=== PATIENT | female | born 1945 | race Caucasian/White ===

== ENCOUNTER 2018-07-24 15:15 | Emergency (ER) | payer MEDICARE ==
[2018-07-24] MEDS: SOD CHLORIDE 0.9% 1,000 ML IV (16:41)
[2018-07-24] MEDS: morphine 4 MG/ML VIAL IV (16:41)
[2018-07-24] MEDS: ONDANSETRON 4 MG INJ IV (16:41)
[2018-07-24 16:43] LABS: ADD MAN DIFF? NO
[2018-07-24 16:50] LABS: WHITE BLOOD COUNT 8.4 10^3/ul (4.8-10.8)
[2018-07-24 16:50] LABS: BASOPHIL # 0.1 10^3/ul (0.0-0.1); BASOPHILS % 1.2 % (0.0-2.0); EOSINOPHILS # 0.4 10^3/ul (0.0-0.5); EOSINOPHILS % 5.1 % (0.0-7.0); HEMATOCRIT 40.4 % (37.0-47.0); HEMOGLOBIN 13.4 g/dl (12.0-16.0); LYMPHOCYTES # 2.8 10^3/ul (0.8-2.9); LYMPHOCYTES % 33.5 % (15.0-51.0); MEAN CORPUSCULAR HEMOGLOBIN 28.4 pg (29.0-33.0); MEAN CORPUSCULAR HGB CONC 33.2 g/dl (32.0-37.0); MEAN CORPUSCULAR VOLUME 85.6 fl (82.0-101.0); MEAN PLATELET VOLUME 11.1 fl (7.4-10.4); MONOCYTE # 0.6 10^3/ul (0.3-0.9); MONOCYTES % 7.2 % (0.0-11.0); NEUTROPHIL # 4.4 10^3/ul (1.6-7.5); NEUTROPHILS % 52.6 % (39.0-77.0); PLATELET COUNT 264 10^3/UL (140-415); RED BLOOD COUNT 4.72 10^6/ul (4.20-5.40); RED CELL DISTRIBUTION WIDTH 13.5 % (11.5-14.5)
[2018-07-24 16:57] LABS: ADD UMIC YES; UR ASCORBIC ACID NEGATIVE (NEGATIVE); UR BACTERIA FEW /HPF (NONE SEEN); UR BILIRUBIN (Dip) NEGATIVE (NEGATIVE); UR BLOOD (Dip) NEGATIVE (NEGATIVE); UR CLARITY CLEAR (CLEAR); UR COLOR YELLOW (YELLOW); UR GLUCOSE (Dip) NEGATIVE (NEGATIVE); UR KETONES (Dip) NEGATIVE (NEGATIVE); UR LEUKOCYTE ESTERASE (Dip) 1+ Leu/ul (NEGATIVE); UR NITRITE (Dip) NEGATIVE (NEGATIVE); UR RBC 1 /HPF (0-5); UR SPECIFIC GRAVITY (Dip) 1.012 (1.003-1.030); UR TOTAL PROTEIN (Dip) NEGATIVE (NEGATIVE); UR UROBILINOGEN (Dip) NEGATIVE (NEGATIVE); UR WBC 19 /HPF (0-5)
[2018-07-24 17:07] LABS: ALANINE AMINOTRANSFERASE 22 IU/L (13-69); ALBUMIN 4.2 g/dl (3.3-4.9); ALBUMIN/GLOBULIN RATIO 1.16; ALKALINE PHOSPHATASE 44 IU/L (42-121); ANION GAP 14 (8-16); ASPARTATE AMINO TRANSFERASE 25 IU/L (15-46); BILIRUBIN,INDIRECT 0.1 mg/dl (0-1.1); BILIRUBIN,TOTAL 0.1 mg/dl (0.2-1.3); BLOOD UREA NITROGEN 18 mg/dl (7-20); CALCIUM 9.4 mg/dl (8.4-10.2); CARBON DIOXIDE 28 mmol/L (21-31); CHLORIDE 98 mmol/L (97-110); CREATININE 1.13 mg/dl (0.44-1.00); GLUCOSE 113 mg/dl (70-220); LIPASE 75 U/L (23-300); SODIUM 137 mmol/L (135-144); TOTAL PROTEIN 7.8 g/dl (6.1-8.1)
[2018-07-24] MEDS: CEFTRIAXONE 1 GM/50 ML (PMX) 50 ML IVPB (18:02)
[2018-07-24] MEDS: POTASSIUM CHLORIDE (SR) 20 MEQ TAB PO (18:17)
== END 2018-07-24 19:44 | disposition home or self-care (01) ==
LOC: E/R 15:15
DX: E87.6 Hypokalemia (principal); N30.00 Acute cystitis without hematuria; I25.10 Atherosclerotic heart disease of native coronary artery without angina pectoris; I10 Essential (primary) hypertension; Z98.61 Coronary angioplasty status
CPT/HCPCS: 36415; 74176; 80053; 81001; 83690; 85025; 96361; 96374; 96375; 99285-25

== ENCOUNTER 2019-04-15 12:53 | Emergency (ER) | payer MEDICARE, OTHER ==
[2019-04-15] MEDS: ACETAMINOPHEN 500 MG TAB PO (13:27)
== END 2019-04-15 15:08 | disposition home or self-care (01) ==
LOC: E/R 12:53
DX: I10 Essential (primary) hypertension (principal); I25.10 Atherosclerotic heart disease of native coronary artery without angina pectoris; R40.2142 Coma scale, eyes open, spontaneous, at arrival to emergency department; R40.2362 Coma scale, best motor response, obeys commands, at arrival to emergency department; R40.2252 Coma scale, best verbal response, oriented, at arrival to emergency department; Z98.61 Coronary angioplasty status
CPT/HCPCS: 99282

== ENCOUNTER 2019-04-18 16:50 | Inpatient (IN) | payer MEDICARE, OTHER ==
[2019-04-18 17:20] LABS: ADD MAN DIFF? NO
[2019-04-18 17:25] LABS: WHITE BLOOD COUNT 7.9 10^3/ul (4.8-10.8)
[2019-04-18 17:25] LABS: BASOPHIL # 0.1 10^3/ul (0.0-0.1); BASOPHILS % 1.1 % (0.0-2.0); EOSINOPHILS # 0.3 10^3/ul (0.0-0.5); EOSINOPHILS % 4.2 % (0.0-7.0); HEMATOCRIT 42.3 % (37.0-47.0); HEMOGLOBIN 13.7 g/dl (12.0-16.0); LYMPHOCYTES # 3.1 10^3/ul (0.8-2.9); LYMPHOCYTES % 38.6 % (15.0-51.0); MEAN CORPUSCULAR HEMOGLOBIN 28.3 pg (29.0-33.0); MEAN CORPUSCULAR HGB CONC 32.4 g/dl (32.0-37.0); MEAN CORPUSCULAR VOLUME 87.4 fl (82.0-101.0); MEAN PLATELET VOLUME 11.5 fl (7.4-10.4); MONOCYTE # 0.6 10^3/ul (0.3-0.9); MONOCYTES % 7.7 % (0.0-11.0); NEUTROPHIL # 3.8 10^3/ul (1.6-7.5); NEUTROPHILS % 48.3 % (39.0-77.0); PLATELET COUNT 228 10^3/UL (140-415); RED BLOOD COUNT 4.84 10^6/ul (4.20-5.40); RED CELL DISTRIBUTION WIDTH 13.4 % (11.5-14.5)
[2019-04-18 17:43] LABS: ANION GAP 9 (5-13); BLOOD UREA NITROGEN 9 mg/dl (7-20); CARBON DIOXIDE 25 mmol/L (21-31); CHLORIDE 106 mmol/L (97-110); CHOL/HDL RATIO 3.3 RATIO; CHOLESTEROL 195 mg/dl (100-200); CREATININE 0.77 mg/dl (0.44-1.00); GLUCOSE 117 mg/dl (70-220); HDL CHOLESTEROL 58 mg/dl (33-92); LDL CHOLESTEROL,CALCULATED 99 mg/dl; POTASSIUM 4.3 mmol/L (3.5-5.1); SODIUM 140 mmol/L (135-144); TRIGLYCERIDES 189 mg/dl (0-149)
[2019-04-18 17:44] LABS: INR 0.93; PARTIAL THROMBOPLASTIN TIME 28.8 Sec (23.0-35.0); PROTIME 12.6 Sec (11.9-14.9)
[2019-04-18 17:56] LABS: TROPONIN-I < 0.012 ng/ml (0.000-0.120)
[2019-04-18] MEDS: LABETALOL HCL 20MG INJ IV (17:59)
[2019-04-18] MEDS: KETOROLAC 30 MG INJ IV (18:00)
[2019-04-18] MEDS: PROCHLORPERAZINE 10 MG INJ IV (18:00)
[2019-04-18] MEDS ORDERED: NACL 0.9% 3 ML SYG IV (18:30)
[2019-04-18] MEDS ORDERED: hydrALAzine 20 MG INJ IV (18:30)
[2019-04-18] MEDS ORDERED: ONDANSETRON 4 MG INJ IV ×2 (18:30)
[2019-04-18] MEDS ORDERED: HYDROCODONE/APAP (5/325) TAB PO (18:30)
[2019-04-18] MEDS ORDERED: LABETALOL HCL 20MG INJ IV (18:30)
[2019-04-18 18:52] LABS: HEMOGLOBIN A1C 5.6 % (0-5.9)
[2019-04-19] MEDS: clonAZEPAM 0.5 MG TAB PO ×2 (02:35→23:13)
[2019-04-19 05:38] LABS: ADD MAN DIFF? NO
[2019-04-19 05:40] LABS: WHITE BLOOD COUNT 5.2 10^3/ul (4.8-10.8)
[2019-04-19 05:40] LABS: BASOPHIL # 0.1 10^3/ul (0.0-0.1); BASOPHILS % 1.4 % (0.0-2.0); EOSINOPHILS # 0.2 10^3/ul (0.0-0.5); EOSINOPHILS % 4.5 % (0.0-7.0); HEMATOCRIT 38.7 % (37.0-47.0); HEMOGLOBIN 12.4 g/dl (12.0-16.0); LYMPHOCYTES # 1.6 10^3/ul (0.8-2.9); LYMPHOCYTES % 30.7 % (15.0-51.0); MEAN CORPUSCULAR HEMOGLOBIN 28.3 pg (29.0-33.0); MEAN CORPUSCULAR VOLUME 88.4 fl (82.0-101.0); MEAN PLATELET VOLUME 11.8 fl (7.4-10.4); MONOCYTE # 0.4 10^3/ul (0.3-0.9); MONOCYTES % 8.5 % (0.0-11.0); NEUTROPHIL # 2.8 10^3/ul (1.6-7.5); NEUTROPHILS % 54.7 % (39.0-77.0); PLATELET COUNT 188 10^3/UL (140-415); RED BLOOD COUNT 4.38 10^6/ul (4.20-5.40); RED CELL DISTRIBUTION WIDTH 13.2 % (11.5-14.5)
[2019-04-19 05:52] LABS: HEMOGLOBIN A1C 5.6 % (0-5.9)
[2019-04-19 06:13] LABS: ALANINE AMINOTRANSFERASE 19 IU/L (13-69); ALBUMIN 3.5 g/dl (3.3-4.9); ALBUMIN/GLOBULIN RATIO 1.34; ALKALINE PHOSPHATASE 40 IU/L (42-121); ANION GAP 4 (5-13); ASPARTATE AMINO TRANSFERASE 21 IU/L (15-46); BILIRUBIN,INDIRECT 0.4 mg/dl (0-1.1); BILIRUBIN,TOTAL 0.4 mg/dl (0.2-1.3); BLOOD UREA NITROGEN 8 mg/dl (7-20); CALCIUM 8.7 mg/dl (8.4-10.2); CARBON DIOXIDE 30 mmol/L (21-31); CHLORIDE 106 mmol/L (97-110); CHOL/HDL RATIO 3.3 RATIO; CHOLESTEROL 172 mg/dl (100-200); CREATININE 0.72 mg/dl (0.44-1.00); GLUCOSE 101 mg/dl (70-220); HDL CHOLESTEROL 51 mg/dl (33-92); LDL CHOLESTEROL,CALCULATED 98 mg/dl; MAGNESIUM 2.2 mg/dl (1.7-2.5); POTASSIUM 4.3 mmol/L (3.5-5.1); SODIUM 140 mmol/L (135-144); TOTAL PROTEIN 6.1 g/dl (6.1-8.1); TRIGLYCERIDES 117 mg/dl (0-149)
[2019-04-19] MEDS: ACETAMINOPHEN 325 MG TAB PO ×2 (09:03→14:18)
[2019-04-19] MEDS: ASPIRIN (EC) 81 MG TAB PO (09:04)
[2019-04-19] MEDS: AMLODIPINE 5 MG TAB PO ×2 (09:51→21:23)
[2019-04-19] MEDS: BENAZEPRIL 40 MG TAB PO (09:52)
[2019-04-19] MEDS: PANTOPRAZOLE (EC) 40 MG TAB PO (09:52)
[2019-04-19] MEDS: ASPIRIN 81 MG TAB PO (09:52)
[2019-04-19] MEDS: ATENOLOL 50 MG TAB PO (09:53)
[2019-04-19] MEDS: ATORVASTATIN 80 MG TAB PO (21:22)
[2019-04-20 02:07] LABS: TROPONIN-I < 0.012 ng/ml (0.000-0.120)
[2019-04-20 06:07] LABS: ADD MAN DIFF? NO
[2019-04-20 06:08] LABS: BASOPHIL # 0.1 10^3/ul (0.0-0.1); BASOPHILS % 1.5 % (0.0-2.0); EOSINOPHILS # 0.4 10^3/ul (0.0-0.5); EOSINOPHILS % 6.7 % (0.0-7.0); HEMATOCRIT 39.1 % (37.0-47.0); HEMOGLOBIN 12.4 g/dl (12.0-16.0); LYMPHOCYTES # 1.8 10^3/ul (0.8-2.9); LYMPHOCYTES % 30.5 % (15.0-51.0); MEAN CORPUSCULAR HGB CONC 31.7 g/dl (32.0-37.0); MEAN CORPUSCULAR VOLUME 88.3 fl (82.0-101.0); MEAN PLATELET VOLUME 11.6 fl (7.4-10.4); MONOCYTE # 0.5 10^3/ul (0.3-0.9); MONOCYTES % 8.4 % (0.0-11.0); NEUTROPHIL # 3.1 10^3/ul (1.6-7.5); NEUTROPHILS % 52.6 % (39.0-77.0); PLATELET COUNT 206 10^3/UL (140-415); RED BLOOD COUNT 4.43 10^6/ul (4.20-5.40); RED CELL DISTRIBUTION WIDTH 13.2 % (11.5-14.5)
[2019-04-20] MEDS: PANTOPRAZOLE (EC) 40 MG TAB PO (06:10)
[2019-04-20 06:32] LABS: ANION GAP 7 (5-13); BLOOD UREA NITROGEN 10 mg/dl (7-20); CALCIUM 8.8 mg/dl (8.4-10.2); CARBON DIOXIDE 27 mmol/L (21-31); CHLORIDE 107 mmol/L (97-110); CREATININE 0.78 mg/dl (0.44-1.00); GLUCOSE 104 mg/dl (70-220); MAGNESIUM 2.1 mg/dl (1.7-2.5); PHOSPHORUS 3.9 mg/dl (2.5-4.9); POTASSIUM 4.2 mmol/L (3.5-5.1); SODIUM 141 mmol/L (135-144)
[2019-04-20 06:44] LABS: CHOLESTEROL 169 mg/dl (100-200); TROPONIN-I 0.015 ng/ml (0.000-0.120)
[2019-04-20 06:44] LABS: CHOL/HDL RATIO 2.9 RATIO; HDL CHOLESTEROL 57 mg/dl (33-92); LDL CHOLESTEROL,CALCULATED 86 mg/dl; TRIGLYCERIDES 129 mg/dl (0-149)
[2019-04-20] MEDS: AMLODIPINE 5 MG TAB PO ×2 (08:39→20:33)
[2019-04-20] MEDS: ATENOLOL 50 MG TAB PO (08:40)
[2019-04-20] MEDS: ASPIRIN (EC) 81 MG TAB PO (08:40)
[2019-04-20] MEDS: BENAZEPRIL 40 MG TAB PO (08:40)
[2019-04-20] MEDS: METHOCARBAMOL 750 MG TAB PO ×2 (12:39→20:33)
[2019-04-20] MEDS: ATORVASTATIN 80 MG TAB PO (20:33)
[2019-04-20] MEDS: BENAZEPRIL 20 MG TAB PO (20:34)
[2019-04-20] MEDS: ZOLPIDEM 5 MG TAB PO (22:10)
[2019-04-21 05:33] LABS: ADD MAN DIFF? NO
[2019-04-21 05:45] LABS: WHITE BLOOD COUNT 6.4 10^3/ul (4.8-10.8)
[2019-04-21 05:45] LABS: BASOPHIL # 0.1 10^3/ul (0.0-0.1); BASOPHILS % 1.3 % (0.0-2.0); EOSINOPHILS # 0.5 10^3/ul (0.0-0.5); EOSINOPHILS % 8.2 % (0.0-7.0); HEMATOCRIT 39.4 % (37.0-47.0); HEMOGLOBIN 12.4 g/dl (12.0-16.0); LYMPHOCYTES # 1.8 10^3/ul (0.8-2.9); LYMPHOCYTES % 28.3 % (15.0-51.0); MEAN CORPUSCULAR HEMOGLOBIN 28.2 pg (29.0-33.0); MEAN CORPUSCULAR HGB CONC 31.5 g/dl (32.0-37.0); MEAN CORPUSCULAR VOLUME 89.7 fl (82.0-101.0); MONOCYTE # 0.6 10^3/ul (0.3-0.9); NEUTROPHIL # 3.4 10^3/ul (1.6-7.5); NEUTROPHILS % 52.9 % (39.0-77.0); PLATELET COUNT 201 10^3/UL (140-415); RED BLOOD COUNT 4.39 10^6/ul (4.20-5.40)
[2019-04-21] MEDS: PANTOPRAZOLE (EC) 40 MG TAB PO (06:13)
[2019-04-21 06:42] LABS: ANION GAP 5 (5-13); BLOOD UREA NITROGEN 19 mg/dl (7-20); CALCIUM 9.1 mg/dl (8.4-10.2); CARBON DIOXIDE 29 mmol/L (21-31); CHLORIDE 105 mmol/L (97-110); CREATININE 1.02 mg/dl (0.44-1.00); GLUCOSE 106 mg/dl (70-220); PHOSPHORUS 4.3 mg/dl (2.5-4.9); POTASSIUM 4.4 mmol/L (3.5-5.1); SODIUM 139 mmol/L (135-144)
[2019-04-21] MEDS: METHOCARBAMOL 750 MG TAB PO ×2 (08:39→12:45)
[2019-04-21] MEDS: BENAZEPRIL 40 MG TAB PO (08:40)
[2019-04-21] MEDS: AMLODIPINE 5 MG TAB PO (08:40)
[2019-04-21] MEDS: ATENOLOL 50 MG TAB PO (08:41)
== END 2019-04-21 15:38 | disposition home or self-care (01) | DRG 305 ==
LOC: E/R 16:50 → 6WM 18:13
DX: I16.0 Hypertensive urgency (principal); R47.81 Slurred speech; R51 Headache; I25.10 Atherosclerotic heart disease of native coronary artery without angina pectoris; E78.5 Hyperlipidemia, unspecified; K29.70 Gastritis, unspecified, without bleeding; F41.9 Anxiety disorder, unspecified; F03.90 Unspecified dementia, unspecified severity, without behavioral disturbance, psychotic disturbance, mood disturbance, and anxiety; Z79.82 Long term (current) use of aspirin
CPT/HCPCS: 70450; 70544; 70549; 70551; 71045; 80048; 80053; 80061; 83036; 83735; 84100; 84443; 84484; 85025; 85610; 85730; 92526; 92610; 93005; 93306; 96374; 96375; 97163; 99285-25; G0378

== ENCOUNTER 2019-04-25 07:48 | Inpatient (IN) | payer MEDICARE, OTHER ==
[~2019-04-25 07:48] MED LIST: ETOMIDATE 20 MG INJ; SUCCINYLCHOLINE CHLORIDE 100 MG/5 ML SYG IV
[2019-04-25 09:35] LABS: ADD MAN DIFF? NO
[2019-04-25 09:38] LABS: WHITE BLOOD COUNT 6.9 10^3/ul (4.8-10.8)
[2019-04-25 09:38] LABS: BASOPHIL # 0.1 10^3/ul (0.0-0.1); BASOPHILS % 1.5 % (0.0-2.0); EOSINOPHILS # 0.2 10^3/ul (0.0-0.5); EOSINOPHILS % 2.6 % (0.0-7.0); HEMOGLOBIN 13.3 g/dl (12.0-16.0); LYMPHOCYTES # 1.3 10^3/ul (0.8-2.9); LYMPHOCYTES % 18.5 % (15.0-51.0); MEAN CORPUSCULAR HEMOGLOBIN 28.4 pg (29.0-33.0); MEAN CORPUSCULAR HGB CONC 31.7 g/dl (32.0-37.0); MEAN CORPUSCULAR VOLUME 89.6 fl (82.0-101.0); MEAN PLATELET VOLUME 11.8 fl (7.4-10.4); MONOCYTE # 0.6 10^3/ul (0.3-0.9); MONOCYTES % 8.3 % (0.0-11.0); NEUTROPHIL # 4.7 10^3/ul (1.6-7.5); NEUTROPHILS % 68.8 % (39.0-77.0); PLATELET COUNT 242 10^3/UL (140-415); RED BLOOD COUNT 4.69 10^6/ul (4.20-5.40)
[2019-04-25 09:59] LABS: ALANINE AMINOTRANSFERASE 43 IU/L (13-69); ALBUMIN 4.2 g/dl (3.3-4.9); ALBUMIN/GLOBULIN RATIO 1.55; ALKALINE PHOSPHATASE 53 IU/L (42-121); ANION GAP 6 (5-13); ASPARTATE AMINO TRANSFERASE 40 IU/L (15-46); BILIRUBIN,INDIRECT 0.4 mg/dl (0-1.1); BILIRUBIN,TOTAL 0.4 mg/dl (0.2-1.3); BLOOD UREA NITROGEN 11 mg/dl (7-20); CALCIUM 9.3 mg/dl (8.4-10.2); CARBON DIOXIDE 31 mmol/L (21-31); CHLORIDE 104 mmol/L (97-110); CHOLESTEROL 130 mg/dl (100-200); CREATININE 0.95 mg/dl (0.44-1.00); GLUCOSE 98 mg/dl (70-220); HDL CHOLESTEROL 62 mg/dl (33-92); LDL CHOLESTEROL,CALCULATED 51 mg/dl; POTASSIUM 4.7 mmol/L (3.5-5.1); SODIUM 141 mmol/L (135-144); TOTAL PROTEIN 6.9 g/dl (6.1-8.1); TRIGLYCERIDES 83 mg/dl (0-149)
[2019-04-25 10:06] LABS: INR 0.98; PROTIME 13.1 Sec (11.9-14.9)
[2019-04-25 10:07] LABS: PARTIAL THROMBOPLASTIN TIME 28.2 Sec (23.0-35.0)
[2019-04-25] MEDS: SOD CHLORIDE 0.45% 1,000 ML IV (10:24)
[2019-04-25] MEDS: DIPHENHYDRAMINE 50 MG CAP PO (11:10)
[2019-04-25] MEDS: FAMOTIDINE 20 MG TAB PO (11:10)
[2019-04-25] MEDS: DIAZEPAM 5 MG TAB PO (11:10)
[2019-04-25] MEDS ORDERED: NITROGLYCERIN (IC) 100 MCG/ML INJ ×2 (13:54→14:41)
[2019-04-25] MEDS ORDERED: HEPARIN 1000 UNITS/ML 10 ML INJ (13:54)
[2019-04-25] MEDS ORDERED: VERAPAMIL 5 MG INJ (13:54)
[2019-04-25] MEDS ORDERED: LIDOCAINE 1% (MDV) 20 ML INJ (13:54)
[2019-04-25] MEDS ORDERED: IODIXANOL LOCM 100 ML BTL (13:54)
[2019-04-25] MEDS ORDERED: MIDAZOLAM 1 MG/ML 2 ML INJ (14:11)
[2019-04-25] MEDS ORDERED: FENTAnyl 50 MCG/ML VIAL (14:11)
[2019-04-25] MEDS ORDERED: NORepinephrine 8MG/250 ML (PMX 250 ML (14:39)
[2019-04-25] MEDS ORDERED: ATROPINE 1 MG/10 ML SYRINGE (14:41)
[2019-04-25] MEDS ORDERED: IOHEXOL 350MG/ML 50 ML BTL (15:09)
[2019-04-25] MEDS ORDERED: PHENYLephrine (100 MCG/ML) 10ML SYG ×3 (15:10→15:57)
[2019-04-25] MEDS ORDERED: ACETAMINOPHEN 325 MG TAB PO (15:30)
[2019-04-25] MEDS ORDERED: AL HYDROX/MG HYDROX/SIMETH 30 ML CUP PO (15:30)
[2019-04-25] MEDS ORDERED: morphine 2 MG INJ IV (15:30)
[2019-04-25] MEDS: SOD CHLORIDE 0.9% 1,000 ML IV (15:35)
[2019-04-25] MEDS: ONDANSETRON 4 MG INJ IV (16:09)
[2019-04-25 16:16] LABS: WHITE BLOOD COUNT 10.8 10^3/ul (4.8-10.8)
[2019-04-25 16:16] LABS: ADD MAN DIFF? NO; BASOPHIL # 0.1 10^3/ul (0.0-0.1); BASOPHILS % 1.2 % (0.0-2.0); EOSINOPHILS # 0.2 10^3/ul (0.0-0.5); EOSINOPHILS % 1.7 % (0.0-7.0); HEMATOCRIT 33.7 % (37.0-47.0); HEMOGLOBIN 10.4 g/dl (12.0-16.0); LYMPHOCYTES # 3.7 10^3/ul (0.8-2.9); LYMPHOCYTES % 34.6 % (15.0-51.0); MEAN CORPUSCULAR HEMOGLOBIN 28.3 pg (29.0-33.0); MEAN CORPUSCULAR HGB CONC 30.9 g/dl (32.0-37.0); MEAN CORPUSCULAR VOLUME 91.8 fl (82.0-101.0); MEAN PLATELET VOLUME 11.5 fl (7.4-10.4); MONOCYTE # 0.5 10^3/ul (0.3-0.9); MONOCYTES % 4.2 % (0.0-11.0); NEUTROPHIL # 6.2 10^3/ul (1.6-7.5); NEUTROPHILS % 57.7 % (39.0-77.0); PLATELET COUNT 206 10^3/UL (140-415); RED BLOOD COUNT 3.67 10^6/ul (4.20-5.40); RED CELL DISTRIBUTION WIDTH 13.2 % (11.5-14.5)
[2019-04-25] MEDS: PHENYLephrine 20MG IN 250 ML 250 ML IV (16:18)
[2019-04-25 16:38] LABS: CREATINE KINASE 45 IU/L (23-200)
[2019-04-25 16:40] LABS: ANION GAP 12 (5-13); BLOOD UREA NITROGEN 9 mg/dl (7-20); CARBON DIOXIDE 17 mmol/L (21-31); CHLORIDE 105 mmol/L (97-110); CREATININE 0.81 mg/dl (0.44-1.00); GLUCOSE 236 mg/dl (70-220); POTASSIUM 4.3 mmol/L (3.5-5.1)
[2019-04-25 16:41] LABS: ALANINE AMINOTRANSFERASE 46 IU/L (13-69); ALBUMIN 2.6 g/dl (3.3-4.9); ALBUMIN/GLOBULIN RATIO 1.13; ALKALINE PHOSPHATASE 43 IU/L (42-121); ASPARTATE AMINO TRANSFERASE 36 IU/L (15-46); BILIRUBIN,INDIRECT 0.3 mg/dl (0-1.1); BILIRUBIN,TOTAL 0.3 mg/dl (0.2-1.3); TOTAL PROTEIN 4.9 g/dl (6.1-8.1)
[2019-04-25 16:42] LABS: SODIUM 134 mmol/L (135-144)
[2019-04-25 16:45] LABS: CALCIUM 7.3 mg/dl (8.4-10.2)
[2019-04-25 16:48] LABS: CK INDEX 4.4; CK-MB 1.99 ng/ml (0.0-2.4)
[2019-04-25 16:54] LABS: TROPONIN-I 0.179 ng/ml (0.000-0.120)
[2019-04-25] MEDS: METHYLPREDNISOLONE 125 MG INJ IV (17:46)
[2019-04-25] MEDS ORDERED: NORepinephrine 4 MG INJ (17:47)
[2019-04-25] MEDS ORDERED: METHYLPREDNISOLONE 125 MG INJ IV (18:00)
[2019-04-25] MEDS: NORepinephrine 8MG/250 ML (PMX 250 ML IV (18:15)
[2019-04-25] MEDS ORDERED: DOPamine-D5W 1.6 MG/ML 250 ML IV (18:30)
[2019-04-25] MEDS ORDERED: CA CHLORIDE 10% 10 ML SYRINGE (18:32)
[2019-04-25] MEDS ORDERED: VASOPRESSIN 60 UNIT in DEXTROSE 5% 57 ML IV (19:30)
== END 2019-04-25 18:57 | disposition expired | DRG 286 ==
LOC: SDS 07:48 → ICU 16:29
PROC: 4A023N7 Measurement of Cardiac Sampling and Pressure, Left Heart, Percutaneous Approach (ICD-10-PCS; principal; 2019-04-25 13:30)
PROC: B211YZZ Fluoroscopy of Multiple Coronary Arteries using Other Contrast (ICD-10-PCS; 2019-04-25 13:30)
PROC: B215YZZ Fluoroscopy of Left Heart using Other Contrast (ICD-10-PCS; 2019-04-25 13:30)
PROC: 4A033BC Measurement of Arterial Pressure, Coronary, Percutaneous Approach (ICD-10-PCS; 2019-04-25 13:30)
PROC: 0BH17EZ Insertion of Endotracheal Airway into Trachea, Via Natural or Artificial Opening (ICD-10-PCS; 2019-04-25 13:33)
PROC: 5A12012 Performance of Cardiac Output, Single, Manual (ICD-10-PCS; 2019-04-25 13:33)
DX: I25.10 Atherosclerotic heart disease of native coronary artery without angina pectoris (principal); J96.90 Respiratory failure, unspecified, unspecified whether with hypoxia or hypercapnia; R57.9 Shock, unspecified; E78.5 Hyperlipidemia, unspecified; I10 Essential (primary) hypertension; Z87.891 Personal history of nicotine dependence
CPT/HCPCS: 31500; 71045; 80053; 80061; 82550; 82553; 82962; 84484; 85025; 85610; 85730; 92950; 93005; 93306; 93458; 93571